=== PATIENT | male | born 1985 | race African-American/Black ===

== ENCOUNTER 2018-03-08 08:48 | Emergency (ER) | payer BC, SELFPAY ==
[2018-03-08] MEDS ORDERED: predniSONE 20 MG TAB ONE (09:12)
[2018-03-08] MEDS ORDERED: Amoxicillin/Potassium Clav 875 MG TAB ONE (09:12)
[2018-03-08] MEDS ORDERED: Ibuprofen 800 MG TAB ONE (09:12)
== END 2018-03-08 09:16 | disposition home or self-care (01) ==
LOC: MADERS 08:48
DX: J20.9 Acute bronchitis, unspecified (principal); F17.210 Nicotine dependence, cigarettes, uncomplicated
CPT/HCPCS: 99283; J7506

== ENCOUNTER 2018-06-22 09:46 | Emergency (ER) | payer SELFPAY | END 2018-06-22 10:28 | disposition home or self-care (01) | LOC: MADERS 09:46 | DX: R05 Cough (principal); R09.81 Nasal congestion; F17.210 Nicotine dependence, cigarettes, uncomplicated | CPT/HCPCS: 99281 ==

== ENCOUNTER 2019-07-12 16:29 | Emergency (ER) | payer SELFPAY ==
[2019-07-12] MEDS ORDERED: Lidocaine 1% 20 ML MDV ONE (17:22)
[2019-07-12] MEDS ORDERED: Adacel (T-DAP) 0.5 ML SYRINGE ONE (17:57)
== END 2019-07-12 18:00 | disposition home or self-care (01) ==
LOC: MADERS 16:29
DX: S61.412A Laceration without foreign body of left hand, initial encounter (principal); F17.210 Nicotine dependence, cigarettes, uncomplicated; W26.9XXA Contact with unspecified sharp object(s), initial encounter
CPT/HCPCS: 12002; 90471; 90715; J2001

== ENCOUNTER 2020-08-28 06:39 | Emergency (ER) | payer SELFPAY ==
[2020-08-28] MEDS ORDERED: Diazepam 5 MG TAB ONE (07:16)
== END 2020-08-28 07:48 | disposition home or self-care (01) ==
LOC: MADERS 06:39
DX: M54.5 Low back pain (principal); F17.210 Nicotine dependence, cigarettes, uncomplicated
CPT/HCPCS: 99283

== ENCOUNTER 2021-07-11 10:42 | Emergency (ER) | payer SELFPAY ==
[2021-07-12 09:33] LABS: SARS-CoV-2 PCR by NAA DETECTED (NotDetected)
== END 2021-07-11 12:30 | disposition home or self-care (01) ==
LOC: MADERS 10:42
DX: U07.1 COVID-19 (principal); F17.210 Nicotine dependence, cigarettes, uncomplicated
CPT/HCPCS: 87804; 99283; U0003; U0005

== ENCOUNTER 2022-09-25 11:36 | Emergency (ER) | payer BC, SELFPAY | END 2022-09-25 11:57 | disposition home or self-care (01) | LOC: MADERS 11:36 | DX: L03.012 Cellulitis of left finger (principal); F17.210 Nicotine dependence, cigarettes, uncomplicated | CPT/HCPCS: 26010 ==

== ENCOUNTER 2023-12-28 19:12 | Emergency (ER) | payer SELFPAY ==
[2023-12-28] MEDS ORDERED: Ibuprofen 800 MG TAB ONE (19:50)
== END 2023-12-28 19:57 | disposition home or self-care (01) ==
LOC: MADERS 19:12
DX: S23.3XXA Sprain of ligaments of thoracic spine, initial encounter (principal); F17.200 Nicotine dependence, unspecified, uncomplicated; X58.XXXA Exposure to other specified factors, initial encounter
CPT/HCPCS: 99283